=== PATIENT | male | born 1990 ===

== ENCOUNTER 2024-04-01 12:06 | Observation (INO) | payer SELFPAY ==
[2024-04-01] VITALS (18 sets, daily range): BP systolic 102–151; BP diastolic 48–80; PULSE 74–104; RESP 14–19; TEMP 36.6–37.4; O2SAT 75–100; BMI 28.5
[2024-04-01 14:56] LABS: Basophils % 0.5 %; Eosinophils % 0.5 %; Lymphocytes # 1.3 10^3/uL (0.8-4.8); Lymphocytes % 20.8 %; Mean Corpuscular HGB Conc 25.3 g/dL (30-55); Mean Corpuscular Hemoglobin 15.6 pg (27-33); Mean Corpuscular Volume 61.7 fl (82-101); Monocytes # 0.5 10^3/uL (0.2-0.9); Monocytes % 7.6 %; Neutrophils # 4.21 10^3/uL (1.8-7.7); Neutrophils % 69.9 %; Nucleated Red Blood Cells % 0.3 %; Platelet Count 235 10^3/cmm (157-399); Red Blood Count 2.82 10^6/uL (3.85-5.65); Red Cell Distribution Width 19.6 % (12.1-15.1); White Blood Count 6.02 10^3/uL (3.29-11.43)
[2024-04-01 15:01] LABS: Alanine Aminotransferase 14 U/L (0-41); Albumin Level 4.4 g/dL (3.5-5.2); Alkaline Phosphatase 55 U/L (40-130); Anion Gap 14.9 (5-19); Aspartate Amino Transferase 22 U/L (0-40); Blood Urea Nitrogen 9 mg/dL (6-20); Calcium 8.9 mg/dL (8.5-10.5); Carbon Dioxide 25 mmol/L (22-29); Chloride 101 mmol/L (98-107); Creatinine Clr Calc Pharmacy 137.1831; Globulin 2.6 g/dL (1.3-4.6); Glucose 112 mg/dL (65-115); Lipase 38 U/L (13-60); Osmolality Calculated 283 mOsm/kg (285-295); Potassium 3.9 mmol/L (3.5-5.1); Sodium 137 mmol/L (136-145); Total Bilirubin 0.3 mg/dL (0.15-1.2)
[2024-04-01 15:04] LABS: Hematocrit 17.4 % (37-53); Slide Review Slide Review Perform
--- NOTE | 2024-04-01 15:19 | ED_ITS ---
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 He states he is also been having rectal bleeding he states he has had maroon stools it has been going on for a month he states it is actually improved today has been having brown stools but has been having increasing flank and back pain along with a lot of weakness and feeling like he is get a pass out. No history of bleeding in the past he states he is never been to a hospital before no surgeries in the past not on any blood thinners Associated Symptoms: Reports hematochezia; Denies chills, diarrhea, fever(s), nausea and vomiting Related Data Allergies Allergy/AdvReac Type Severity Reaction Status Date / Time No Known Allergies Allergy Verified 04/01/24 12:23 Review of Systems 2 Const: Reports: fatigue; Denies: fever(s) or chills Eyes: Denies: blurry vision or eye discomfort ENMT: Denies: throat pain or dental pain Card: Denies: chest pain Resp: Denies: dyspnea GI: Reports: abdominal pain and hematochezia; Denies: nausea, vomiting or diarrhea Musc: Denies: neck pain or back pain Skin/Breast: Denies: rash Neuro: Denies: headache(s) Physical Exam 2 Const: COMMON NORMALS: patient oriented x3 HENMT: COMMON NORMALS: normocephalic and atraumatic HEAD & SCALP: n ormocephalic and atraumatic Neck/C-Spine: COMMON NORMALS: full ROM and supple Chest: COMMONS NORMALS: normal inspection of the chest and normal palpation of entire chest wall Resp: COMMON NORMALS: normal respiratory effort, No retractions, No use of accessory muscles and clear to auscultation bilaterally AUSCULTATION: clear to auscultation bilaterally Cardio: COMMON NORMALS: regular rate, regular rhythm and No murmurs present (Cardio) RATE: regular rate RHYTHM: regular rhythm GI: COMMON NORMALS: Normal to inspection, nondistended, normoactive bowel sounds present, Soft to palpation, non-tender and no masses PALPATION: Yes Soft to palpation RECTAL EXAM: No heme positive stool OTHER: brown stool on rectal exam Extremity: COMMON NORMALS: normal to inspection and full ROM Neuro: COMMON NORMALS: patient oriented x3, moves all extremities and no focal motor deficits Psych: COMMON NORMALS: mental status grossly normal, Normal thought process present and cooperative THOUGHT PROCESS: Normal thought process present Skin: COMMON NORMALS: no rashes or lesions noted and no wounds GENERAL SKIN EXAM: no rashes or lesions noted Course 2 Vital Signs: Vital signs: Vital Signs Temperature 99.1 F 04/01/24 12:15 Pulse Rate 90 04/01/24 15:19 Respiratory Rate 19 H 04/01/24 15:19 Blood Pressure 125/80 04/01/24 15:19 Pulse Oximetry 100 04/01/24 15:19 Oxygen Delivery Me thod Room Air 04/01/24 15:19 MDM - Abdominal Pain Medical Decision Making Patient presents here with GI bleed likely causes anemia he has no active bleeding at this time we will transfuse in the ER did speak to surgery along with hospitalist and will admit. Medical Records I reviewed the patient's medical records. Lab Data I reviewed the patient's lab results. 04/01/24 15:35 04/01/24 14:10 Labs/Radiology: Radiology Impressions Abdomen/Pelvis CT 04/01/24 15:19 IMPRESSION: 1. Hepatosplenomegaly. 2. Question mild proctocolitis versus artifact from under distension/mucosal crowding. 3. No definitive evidence of rectal bleeding, with the caveat that this study is limited for evaluation of GI bleed. Consider correlation with a dedicated abdomen and pelvic CT without and with contrast (GI bleeding protocol), or nuclear medicine GI bleeding scan. Laboratory Results WBC 6.02 10^3/uL (3.29-11.43) 04/01/24 14:10 RBC 2.82 10^6/uL (3.85-5.65) L 04/01/24 14:10 Hgb 4.10 g/dL (11.27-16.99) L* 04/01/24 15:35 Hct 16.4 % (37-53) L* 04/01/24 15:35 MCV 61.7 fl (82-101) L 04/01/24 14:10 MCH 15.6 pg (27-33) L 04/01/24 14:10 MCHC 25.3 g/dL (30-55) L 04/01/24 14:10 RDW 19.6 % (12.1-15.1) H 04/01/24 14:10 Plt Count 235 10^3/cmm (157-399) 04/01/24 14:10 MPV Not Reportable 04/01/24 14:10 Neut % (Auto) 69.9 % 04/01/24 14:10 Lymph % (Auto) 20.8 % 04/01/24 14:10 [place] % (Auto) 7.6 % 04/01/24 14:10 Eos % (Auto) 0.5 % 04/01/24 14:10 Baso % (Auto) 0.5 % 04/01/24 14:10 Neut # (Auto) 4.21 10^3/uL (1.8-7.7) 04/01/24 14:10 Lymph # (Auto) 1.3 10^3/uL (0.8-4.8) 04/01/24 14:10 [place] # (Auto) 0.5 10^3/uL (0.2-0.9) 04/01/24 14:10 Eos # (Auto) 0.0 10^3/uL (0.0-0.8) 04/01/24 14:10 Baso # (Auto) 0.0 10^3/uL (0.0-0.1) 04/01/24 14:10 Nucleated RBC % (auto) 0.3 % 04/01/24 14:10 Nucleated RBCs # 0.0 /100WBC 04/01/24 14:10 Sodium 137 mmol/L (136-145) 04/01/24 14:10 Potassium 3.9 mmol/L (3.5-5.1) 04/01/24 14:10 Chloride 101 mmol/L (98-107) 04/01/24 14:10 Carbon Dioxide 25 mmol/L (22-29) 04/01/24 14:10 Anion Gap 14.9 (5-19) 04/01/24 14:10 BUN 9 mg/dL (6-20) 04/01/24 14:10 Creatinine 0.9 mg/dL (0.7-1.2) 04/01/24 14:10 GFR Calculation 96.0 mL/min (90-130) 04/01/24 14:10 Glucose 112 mg/dL (65-115) 04/01/24 14:10 Calculated Osmolality 283 mOsm/kg (285-295) L 04/01/24 14:10 Calcium 8.9 mg/dL (8.5-10.5) 04/01/24 14:10 Total Bilirubin 0.3 mg/dL (0.15-1.2) 04/01/24 14:10 AST 22 U/L (0-40) 04/01/24 14:10 ALT 14 U/L (0-41) 04/01/24 14:10 Alkaline Phosphatase 55 U/L (40-130) 04/01/24 14:10 Total Protein 7.0 g/dL (6.6-8.7) 04/01/24 14:10 Albumin 4.4 g/dL (3.5-5.2) 04/01/24 14:10 Globulin 2.6 g/dL (1.3-4.6) 04/01/24 14:10 Lipase 38 U/L (13-60) 04/01/24 14:10 Blood Type B Positive 04/01/24 15:35 Rho(D) Type Rh positive 04/01/24 15:35 Antibody Screen Negative 04/01/24 15:35 Crossmatch See Detail 04/01/24 15:35 All radiology interpretation(s) finalized by discharge Critical Care Time 2 Critical Care Time: Critical Care Time: Yes Total Critical Care Time: 40 Attestation: The high probability of a clinically significant, sudden or life threatening deterioration of the patient's gi system(s) required my full and direct attention, intervention and personal management. The critical care time is as shown. This time is in addition to time spent performing any reported procedures but includes the following: [x] Data and vital sign review and interpretation [x] Patient assessment, examination and intervention [x] Documentation [x] Medication orders and management Discharge Plan Discharge Patient Disposition: Admitted As Inpatient Clinical Impression: Anemia, GI bleed Condition: Stable Coding Level of Care Code ED Service Specialist for Gina De La O
--- NOTE | 2024-04-01 15:19 | CTR_ITS ---
PROCEDURE INFORMATION: Exam: CT Abdomen And Pelvis With Contrast Exam date and time: 04/01/2024 3:44 PM Age: 33 years old Clinical indication: Abdominal pain; Additional info: Rectal bleeding TECHNIQUE: Imaging protocol: Computed tomography of the abdomen and pelvis with contrast. Radiation optimization: All CT scans at this facility use at least one of these dose optimization techniques: automated exposure control; mA and/or kV adjustment per patient size (includes targeted exams where dose is matched to clinical indication); or iterative reconstruction. Contrast material: [id number]; Contrast volume: 100 ml; Contrast route: INTRAVENOUS (IV); COMPARISON: No relevant prior studies available. RADIATION DOSE METRICS: Total DLP (mGy-cm): 797 FINDINGS: Lungs: Subpleural atelectasis of the dependent portions of the lungs. Lung bases are clear. Liver: Liver is enlarged measuring 20 cm. No liver lesions. Gallbladder and biliary ducts: Gallbladder is normal. There is no evidence of biliary ductal dilation. Pancreas: The pancreas is normal. Spleen: Spleen is enlarged measuring 13 cm in length. Adrenal glands: Adrenal glands are normal. Kidneys and ureters: The kidneys are normal. No hydroureter. Stomach and bowel: Rectum and sigmoid are under distended. However, I do question mild wall thickening and mucosal enhancement. Mild constipation. Small bowel is normal. The stomach is normal. The duodenum is unremarkable. There is no evidence of intestinal obstruction. Appendix: A normal appendix is identified. Intraperitoneal space: There is no evidence of free intraperitoneal or pelvic fluid. No intraperitoneal fluid collections. There is no free intraperitoneal air. Vasculature: The vasculature is normal. Portal venous system is patent. Lymph nodes: There is no evidence of lymphadenopathy. Urinary bladder: Bladder is decompressed and difficult to evaluate. Reproductive: Reproductive organs are unremarkable as visualized. Bones/joints: No acute skeletal abnormality or aggressive osseous lesion. Soft tissues: Fat containing umbilical hernia. No acute body wall soft tissue findings. CT/CT abdomen pelvis w con* [id number] IMPRESSION: 1. Hepatosplenomegaly. 2. Question mild proctocolitis versus artifact from under distension/mucosal crowding. 3. No definitive evidence of rectal bleeding, with the caveat that this study is limited for evaluation of GI bleed. Consider correlation with a dedicated abdomen and pelvic CT without and with contrast (GI bleeding protocol), or nuclear medicine GI bleeding scan.
[2024-04-01] MEDS: iohexol 350 mg/mL 500 mL Btl (per mL) IV (15:57)
[2024-04-01 16:44] LABS: Hematocrit 16.4 % (37-53)
--- NOTE | 2024-04-01 17:16 | P.HP_ITS ---
Providers/Chief Complaint 2 Chief Complaint: abd pain History of Present Illness Kahlil Cardenas is a 33 year old male German-speaking gentleman, presented with chief complaint of generalized weakness and fatigue and dizziness. Patient is stating that he has been noticing blood in stool for last 1 month and lately became extremely fatigued lethargic and dizzy on exertion. Hemoglobin is 4.1, severe microcytic anemia, 2 units requested he is hemodynamically stable. Patient does not take any aspirin or Plavix, no previous colonoscopy history. CT abdomen pelvis consistent with proctocolitis, general surgery consulted for colonoscopy patient will get mag citrate, in total he will get 4 units of PRBC along iron Review of Systems 2 Const: Denies: fever(s) Eyes: Denies: change in vision ENMT: Denies: throat pain Card: Denies: chest pain Resp: Denies: dyspnea GI: Reports: change in stool character and hematochezia Medications/Allergies Allergies Allergy/AdvReac Type Severity Reaction Status Date / Time No Known Allergies Allergy Verified 04/01/24 12:23 Vitals/I&O/Wt Last Vital Signs Temp 99.1 F 04/01/24 12:15 Pulse 90 04/01/24 15:19 Resp 19 H 04/01/24 15:19 BP 125/80 04/01/24 15:19 Pulse Ox 100 04/01/24 15:19 O2 Del Method Room Air 04/01/24 15:19 Weight last 48 hrs Weight 95.254 kg Physical Exam 2 Narrative: Young German speaking male Awake and alert Pale complexion Hemodynamically stable Currently room air Nonfocal neuroexam GCS 15 Awake and alert pleasant and cooperative nonfocal neuroexam Data 04/01/24 15:35 04/01/24 14:10 A&P Assessment and plan (1) Hematochezia: (2) GI bleed: (3) Anemia: (4) Microcytic anemia: Plan Severe microcytic anemia Hemodynamically stable Seems to be chronic in nature?why his blood pressure stable Low MCV thalassemia minor? Will give him 4 unit total PRBC I will also give him 1 unit of iron Requested iron studies Hemoglobin is 4.1 no abnormality of liver enzymes, patient does not take any blood thinners Proctocolitis concern, general surgery consult, he will get mag citrate in for liquid diet for now n.p.o. after midnight Dr. Jerez consulted Admit to [facility] Monitor closely Full code DVT prophylaxis contraindicated Interpretation was used to get more information Attestations 2 Medical Necessity Statement*: Anticipating discharge within 48 hours Diagnoses Hematochezia K92.1 GI bleed K92.2 Anemia D64.9 Microcytic anemia D50.9
[2024-04-01 17:47] LABS: Platelet Count 235 10^3/cmm (157-399)
[2024-04-01 19:40] LABS: Iron 12 ug/dL (59-158); Percent Saturation 2.8 % (20-50); Total Iron Binding Capacity 414 mcg/dl; Unsaturated Iron Binding 402 ug/dL (112-347)
[2024-04-01 19:55] LABS: Fibrinogen 313 mg/dL (174-498)
[2024-04-01] MEDS: magnesium citrate Btl 296 mL PO ×3 (20:56→23:22)
[2024-04-01] MEDS: pantoprazole 40 mg SDV IVP (21:13)
[2024-04-01] MEDS: piperacillin-tazobactam 3.375 GM in sodium chloride 0.9% (plus) 50 ML IV (21:14)
[2024-04-01] MEDS: FUROsemide 10 mg/mL SDV 2mL 20 MG IVP (22:59)
[2024-04-01] MEDS: sodium chloride 0.9% 100 mL Bag 50 ML IV (23:45)
[2024-04-02] VITALS (21 sets, daily range): BP systolic 77–120; BP diastolic 54–75; PULSE 59–95; RESP 14–18; TEMP 36.6–37.3; O2SAT 96–100
[2024-04-02] MEDS: morphine IR 15 mg Tablet PO (01:09)
[2024-04-02] MEDS: acetaminophen 500 mg Tablet PO (01:09)
[2024-04-02] MEDS: ondansetron 2 mg/ML SDV 2 mL 4 MG IVP (02:30)
[2024-04-02] MEDS: piperacillin-tazobactam 3.375 GM in sodium chloride 0.9% (plus) 50 ML IV ×2 (04:45→11:29)
[2024-04-02 07:28] LABS: Basophils % 0.4 %; Eosinophils % 0.5 %; Hematocrit 25.9 % (37-53); Lymphocytes # 1.4 10^3/uL (0.8-4.8); Lymphocytes % 16.3 %; Mean Corpuscular HGB Conc 30.5 g/dL (30-55); Mean Corpuscular Hemoglobin 20.8 pg (27-33); Mean Corpuscular Volume 68.2 fl (82-101); Monocytes # 0.5 10^3/uL (0.2-0.9); Monocytes % 6.1 %; Neutrophils # 6.49 10^3/uL (1.8-7.7); Nucleated Red Blood Cells # 0.1 /100WBC; Nucleated Red Blood Cells % 0.7 %; Platelet Count 232 10^3/cmm (157-399); Red Cell Distribution Width 25.2 % (12.1-15.1); White Blood Count 8.53 10^3/uL (3.29-11.43)
--- NOTE | 2024-04-02 07:32 | PC.NURSE ---
BLOOD TRANSFUSION pre administration of third unit had oral temp of 98.1, at 15 minute foster patient temp was 99.2 oral and patient was cold but skin was hot to touch. poem writer stopped blood, hung saline per protocol and called dr nguyen. after informing and answering 's questions order was given to resume blood. poem writer resumed blood as ordered, and rechecked temp 15 minutes later and patients temperature was 98.7 orally. patient tolerated the rest of the unit and one more well without incident.
[2024-04-02 07:46] LABS: Anion Gap 15.1 (5-19); Blood Urea Nitrogen 8 mg/dL (6-20); Calcium 8.6 mg/dL (8.5-10.5); Carbon Dioxide 25 mmol/L (22-29); Chloride 102 mmol/L (98-107); Creatinine Clr Calc Pharmacy 128.5585; Glucose 110 mg/dL (65-115); Magnesium 2.3 mg/dL (1.7-2.3); Osmolality Calculated 285 mOsm/kg (285-295); Potassium 4.1 mmol/L (3.5-5.1); Sodium 138 mmol/L (136-145)
[2024-04-02] MEDS: pantoprazole 40 mg SDV IVP (08:03)
--- NOTE | 2024-04-02 09:51 | P.MISC_ITS ---
Miscellaneous Note Purpose of Documentation: 33-year-old [place]an-speaking gentleman feliciano spencer significant past medical history without past medical history of cancer, bleeding disorder, presented with chief complaint of feeling fatigued lethargic and presyncope. In the ER he was diagnosed with severe microcytic anemia with hemoglobin around 4, he was given 4 units PRBC with Lasix in between. He has significantly low iron as well with extremely low MCV, thalassemia minor?. Dr. Jerez was consulted because patient was experiencing hematochezia for last 3 to 4 weeks. He was given mag citrate as bowel prep. His iron is only 12, he will get iron supplementation along vitamin C and bowel regimen. Give him couple dose of Zosyn for possible proctitis evident on CT scan. He remained hemodynamic stable. Blood pressure remained stable despite his low hemoglobin. He is not on any anticoagulating agent. His coagulation profile is normal.
--- NOTE | 2024-04-02 13:37 | P.CONIM_ITS ---
Providers/Reason For Consult 2 Consulting Physician/Specialty*: Dr. Marques Jerez, DO/General Surgery Reason for Consult*: GI bleed, acute anemia Attending Physician: Richie Sandoval MD History of Present Illness History of Present Illness Kahlil Cardenas is a 33 year old male hospital due to right-sided abdominal pain and per rectum. Examined the patient and spoke with him through an survey field technician provided by the hospital. He reports that he has had a 1 month history of bright red blood per rectum along with right-sided abdominal pain. The pain does not radiate. Nothing seems to make the pain better or worse. He also reports terrible heartburn. Denies any melena. Colonoscopy before and denies any family history of colon cancer. In the ER he was found to have a hemoglobin of 4 Review of Systems 2 General: Reports: 10 or more systems reviewed and unremarkable except in HPI and below Medications/Allergies Home Medications Medication Instructions Recorded Confirmed Last Taken Type ascorbic acid (vitamin C) 100 mg 100 mg PO DAILY #60 tabs 04/02/24 Unknown Rx tablet (Vitamin C) polysaccharide iron complex 150 mg 150 mg PO DAILY #90 caps 04/02/24 Unknown Rx iron capsule (Ferrex) sennosides 8.6 mg-docusate sodium 1 tab-cap PO DAILY #30 tabs 04/02/24 Unknown Rx 50 mg tablet (Senna-S) Allergies Allergy/AdvReac Type Severity Reaction Status Date / Time No Known Allergies Allergy Verified 04/01/24 12:23 Current Medications Generic Name Dose Route Start Last Admin Trade Name Freq PRN Reason Stop Dose Admin Acetaminophen 500 mg 04/01/24 18:16 04/02/24 01:09 Acetaminophen 500 Mg Tablet PO 500 mg Q4H PRN Administration fever Piperacillin Sod/Tazobactam 50 mls @ 12.5 mls/hr 04/01/24 20:00 04/02/24 11:29 Sod 3.375 gm/ Sodium Chloride IV 12.5 mls/hr Q8H ORIANA Administration Morphine Sulfate 15 mg 04/01/24 18:16 04/02/24 01:09 Morphine Ir 15 Mg Tablet PO 15 mg Q6H PRN Administration MODERATE PAIN Ondansetron HCl 4 mg 04/01/24 18:16 04/02/24 02:30 Ondansetron 2 Mg/Ml Sdv 2 Ml IVP 4 mg Q6H PRN Administration NAUSEA AND VOMITING Pantoprazole Sodium 40 mg 04/01/24 18:16 04/02/24 08:03 Pantoprazole 40 Mg Sdv IVP 40 mg BID ORIANA Administration Sodium Chloride 50 ml 04/01/24 15:19 04/01/24 23:45 Sodium Chloride 0.9% 100 Ml Bag IV 04/02/24 15:19 50 ml PRN PRN Administration Blood transfusion prime and flush Vitals/I&O/Wt Last Vital Signs Temp 98.7 F 04/02/24 05:05 Pulse 64 04/02/24 12:05 Resp 18 04/02/24 05:05 BP 114/71 04/02/24 12:05 Pulse Ox 99 04/02/24 12:05 O2 Del Method Room Air 04/02/24 12:05 04/01/24 04/02/24 04/02/24 22:59 06:59 14:59 Intake Total 350 / 350 1250 / 1600 50 / 50 Output Total 2750 / 2750 Balance 350 / 350 -1500 / -1150 50 / 50 Weight last 48 hrs Weight 229 lb 4 oz Weight 226 lb 14.4 oz Weight 210 lb Physical Exam 2 Narrative: General : Patient is well developed , no acute distress, oriented x3 Head : Normal cephalic, a-traumatic. Ears : Pinnae and external canal are normal. Hearing is normal. Eyes : PERRLA, Sclera and injection are normal. No conjunctival discharge. Nose : Mucous membranes are without erythema. Throat : buccal mucosa is normal, gums are without significant recession or hypertrophy. Lungs : Equal chest rise bilaterally, no use of accessory muscles, trachea is midline. Cor : Rate and rhythm are normal. Abdomen : Soft, ND, NT, no g/r/m Extremities : No edema, no cyanosis or clubbing, dorsalis pedis pulses are present bilaterally, non-tender to palpation of calves. Upper extremities are normal bilaterally. Back : non-tender to palpation, no CVA tenderness. Neuro : CN II - XII intact, Upper and lower extremities have equal and full strength Data 04/02/24 07:20 04/02/24 07:20 A&P Assessment and plan (1) GI bleed: (2) Anemia: Plan Pantoprazole twice daily Sucralfate twice daily EGD Diagnostic colonoscopy The risks and benefits of the procedure, including bleeding, infection, intestinal perforation requiring surgery, missed lesion were explained to the patient. The patient is understanding of the risks and wishes to proceed. He was consented through an survey field technician provided by the hospital. All questions answered Coding Level of Care Code 27440 Diagnoses GI bleed K92.2 Anemia D64.9
--- NOTE | 2024-04-02 14:02 | P.ANESASSM_ITS ---
Pre-Anesthetic Assessment Height/Weight: Height 6 ft Weight 229 lb 4 oz Temp Pulse Resp BP Pulse Ox O2 Del Method 98.7 F 64 18 114/71 99 Room Air 04/02/24 05:05 04/02/24 12:05 04/02/24 05:05 04/02/24 12:05 04/02/24 12:05 04/02/24 12:05 Operation Date: 04/02/24 14:30 Proposed Procedures p EGD(Not Applicable) - Marques Jerez DO s Colonoscopy(Not Applicable) - Marques Jerez DO Anesthetic Plan ASA status: 3 Anesthesia: General Other: No prior issues with anesthesia Patient admitted 04/01/2024 for abdominal pain and hematochezia. Labs today reviewed, hemoglobin 7.9. Hemoglobin 4.1 at admission Denies any cardiac or pulmonary issues Vitals currently stable METs greater than 4 Plan for MAC anesthetic Medications/Allergies Home Medications Medication Instructions Recorded Confirmed Last Taken Type ascorbic acid (vitamin C) 100 mg 100 mg PO DAILY #60 tabs 04/02/24 Unknown Rx tablet (Vitamin C) polysaccharide iron complex 150 mg 150 mg PO DAILY #90 caps 04/02/24 Unknown Rx iron capsule (Ferrex) sennosides 8.6 mg-docusate sodium 1 tab-cap PO DAILY #30 tabs 04/02/24 Unknown Rx 50 mg tablet (Senna-S) Allergies Allergy/AdvReac Type Severity Reaction Status Date / Time No Known Allergies Allergy Verified 04/01/24 12:23 Current Medications Generic Name Dose Route Start Last Admin Trade Name Freq PRN Reason Stop Dose Admin Acetaminophen 500 mg 04/01/24 18:16 04/02/24 01:09 Acetaminophen 500 Mg Tablet PO 500 mg Q4H PRN Administration fever Piperacillin Sod/Tazobactam 50 mls @ 12.5 mls/hr 04/01/24 20:00 04/02/24 11:29 Sod 3.375 gm/ Sodium Chloride IV 12.5 mls/hr Q8H ORIANA Administration Morphine Sulfate 15 mg 04/01/24 18:16 04/02/24 01:09 Morphine Ir 15 Mg Tablet PO 15 mg Q6H PRN Administration MODERATE PAIN Ondansetron HCl 4 mg 04/01/24 18:16 04/02/24 02:30 Ondansetron 2 Mg/Ml Sdv 2 Ml IVP 4 mg Q6H PRN Administration NAUSEA AND VOMITING Pantoprazole Sodium 40 mg 04/01/24 18:16 04/02/24 08:03 Pantoprazole 40 Mg Sdv IVP 40 mg BID ORIANA Administration Sodium Chloride 50 ml 04/01/24 15:19 04/01/24 23:45 Sodium Chloride 0.9% 100 Ml Bag IV 04/02/24 15:19 50 ml PRN PRN Administration Blood transfusion prime and flush Data Anesthesia 04/02/24 07:20 04/02/24 07:20 Short CBC 04/01/24 04/01/24 04/01/24 Range/Units 14:10 14:10 15:35 WBC 6.02 (3.29-11.43) 10^3/uL Hgb 4.40 L* 4.10 L* (11.27-16.99) g/dL Hct 17.4 L* 16.4 L* (37-53) % MCV 61.7 L (82-101) fl Plt Count 235 235 (157-399) 10^3/cmm Neut % (Auto) 69.9 % Neut # (Auto) 4.21 (1.8-7.7) 10^3/uL 04/02/24 Range/Units 07:20 WBC 8.53 (3.29-11.43) 10^3/uL Hgb 7.90 L D (11.27-16.99) g/dL Hct 25.9 L D (37-53) % MCV 68.2 L D (82-101) fl Plt Count 232 (157-399) 10^3/cmm Neut % (Auto) 76.0 % Neut # (Auto) 6.49 (1.8-7.7) 10^3/uL BMP 04/01/24 04/02/24 14:10 07:20 Sodium 137 138 Potassium 3.9 4.1 Chloride 101 102 Carbon Dioxide 25 25 BUN 9 8 Creatinine 0.9 1.0 Glucose 112 110 Calcium 8.9 8.6 Liver Function 04/01/24 Range/Units 14:10 Total Bilirubin 0.3 (0.15-1.2) mg/dL AST 22 (0-40) U/L ALT 14 (0-41) U/L Alkaline Phosphatase 55 (40-130) U/L Albumin 4.4 (3.5-5.2) g/dL Blood Bank 04/01/24 15:35 Blood Type B Positive Rho(D) Type Rh positive Antibody Screen Negative Coags 04/01/24 04/01/24 14:10 19:35 PT 13.50 INR 1.00 APTT 25.0 Fibrinogen 313 Cancelled Cardiac Studies: 2 No Data to Display
--- NOTE | 2024-04-02 15:31 | PM.DCS ---
Discharge Providers Date of Admission: 04/01/24 17:58 Date of Discharge: April 02, 2024 Attending Provider at Admission: Richie Sandoval MD Attending Provider at Discharge: Richie Sandoval MD Diagnoses at Discharge Discharge Diagnosis (1) GI bleed: Status: Acute (2) Anemia: Status: Acute Reason for Visit Reason for Visit: abd pain Hospital Course Hospital Course 33-year-old Ukrainian-speaking gentleman without significant past medical history without past medical history of cancer, bleeding disorder, presented with chief complaint of feeling fatigued lethargic and presyncope. In the ER he was diagnosed with severe microcytic anemia with hemoglobin around 4, he was given 4 units PRBC with Lasix in between. He has significantly low iron as well with extremely low MCV, thalassemia minor?. Dr. Jerez was consulted because patient was experiencing hematochezia for last 3 to 4 weeks. He was given mag citrate as bowel prep. His iron is only 12, he will get iron supplementation along vitamin C and bowel regimen. Give him couple dose of Zosyn for possible proctitis evident on CT scan. He remained hemodynamic stable. Blood pressure remained stable despite his low hemoglobin. He is not on any anticoagulating agent. His coagulation profile is normal He may benefit from hematology referral for thalassemia workup Physical Exam Narrative: Nonfocal neuroexam Pleasant cough Abdomen soft Discharge Data Studies Completed and Pending Completed Studies During Hospitalization Category Date Time Status CT abdomen pelvis w con* [id number] Stat Cat Scan 04/01/24 15:19 Completed Pending at discharge Category Date Time Status Pathology: Surgical [PTH] Routine Pth 04/02/24 15:20 Ordered Radiology Impressions Abdomen/Pelvis CT 04/01/24 15:19 IMPRESSION: 1. Hepatosplenomegaly. 2. Question mild proctocolitis versus artifact from under distension/mucosal crowding. 3. No definitive evidence of rectal bleeding, with the caveat that this study is limited for evaluation of GI bleed. Consider correlation with a dedicated abdomen and pelvic CT without and with contrast (GI bleeding protocol), or nuclear medicine GI bleeding scan. Laboratory Results WBC 8.53 10^3/uL (3.29-11.43) 04/02/24 07:20 RBC 3.80 10^6/uL (3.85-5.65) L 04/02/24 07:20 Hgb 7.90 g/dL (11.27-16.99) L D 04/02/24 07:20 Hct 25.9 % (37-53) L D 04/02/24 07:20 MCV 68.2 fl (82-101) L D 04/02/24 07:20 MCH 20.8 pg (27-33) L D 04/02/24 07:20 MCHC 30.5 g/dL (30-55) D 04/02/24 07:20 RDW 25.2 % (12.1-15.1) H 04/02/24 07:20 Plt Count 232 10^3/cmm (157-399) 04/02/24 07:20 MPV Not Reportable 04/02/24 07:20 Neut % (Auto) 76.0 % 04/02/24 07:20 Lymph % (Auto) 16.3 % 04/02/24 07:20 [place] % (Auto) 6.1 % 04/02/24 07:20 Eos % (Auto) 0.5 % 04/02/24 07:20 Baso % (Auto) 0.4 % 04/02/24 07:20 Neut # (Auto) 6.49 10^3/uL (1.8-7.7) 04/02/24 07:20 Lymph # (Auto) 1.4 10^3/uL (0.8-4.8) 04/02/24 07:20 [place] # (Auto) 0.5 10^3/uL (0.2-0.9) 04/02/24 07:20 Eos # (Auto) 0.0 10^3/uL (0.0-0.8) 04/02/24 07:20 Baso # (Auto) 0.0 10^3/uL (0.0-0.1) 04/02/24 07:20 Nucleated RBC % (auto) 0.7 % 04/02/24 07:20 Nucleated RBCs # 0.1 /100WBC 04/02/24 07:20 PT 13.50 SECONDS (12.1-14.9) 04/01/24 14:10 INR 1.00 (0.8-1.2) 04/01/24 14:10 APTT 25.0 SECONDS (23.9-36.7) 04/01/24 14:10 Fibrinogen Cancelled 04/01/24 19:35 Sodium 138 mmol/L (136-145) 04/02/24 07:20 Potassium 4.1 mmol/L (3.5-5.1) 04/02/24 07:20 Chloride 102 mmol/L (98-107) 04/02/24 07:20 Carbon Dioxide 25 mmol/L (22-29) 04/02/24 07:20 Anion Gap 15.1 (5-19) 04/02/24 07:20 BUN 8 mg/dL (6-20) 04/02/24 07:20 Creatinine 1.0 mg/dL (0.7-1.2) 04/02/24 07:20 GFR Calculation 85.0 mL/min (90-130) L 04/02/24 07:20 Glucose 110 mg/dL (65-115) 04/02/24 07:20 Calculated Osmolality 285 mOsm/kg (285-295) 04/02/24 07:20 Calcium 8.6 mg/dL (8.5-10.5) 04/02/24 07:20 Magnesium 2.3 mg/dL (1.7-2.3) 04/02/24 07:20 Iron 12 ug/dL (59-158) L 04/01/24 14:10 TIBC 414 mcg/dl 04/01/24 14:10 % Saturation 2.8 % (20-50) L 04/01/24 14:10 Unsat Iron Binding 402 ug/dL (112-347) H 04/01/24 14:10 Total Bilirubin 0.3 mg/dL (0.15-1.2) 04/01/24 14:10 AST 22 U/L (0-40) 04/01/24 14:10 ALT 14 U/L (0-41) 04/01/24 14:10 Alkaline Phosphatase 55 U/L (40-130) 04/01/24 14:10 Total Protein 7.0 g/dL (6.6-8.7) 04/01/24 14:10 Albumin 4.4 g/dL (3.5-5.2) 04/01/24 14:10 Globulin 2.6 g/dL (1.3-4.6) 04/01/24 14:10 Lipase 38 U/L (13-60) 04/01/24 14:10 Blood Type B Positive 04/01/24 15:35 Rho(D) Type Rh positive 04/01/24 15:35 Antibody Screen Negative 04/01/24 15:35 Crossmatch See Detail 04/01/24 15:35 Vitals Last Vital Signs Temp 98.7 F 04/02/24 05:05 Pulse 64 04/02/24 12:05 Resp 18 04/02/24 05:05 BP 114/71 04/02/24 12:05 Pulse Ox 99 04/02/24 12:05 O2 Del Method Room Air 04/02/24 12:05 Discharge Plan Discharge Patient Disposition: Home Condition: Stable Prescriptions: New polysaccharide iron complex [Ferrex 150] 150 mg iron Capsule 150 mg PO DAILY Qty: 90 0RF Vitamin C 100 mg tablet 100 mg PO DAILY Qty: 60 0RF sennosides-docusate sodium [Senna-S] 8.6-50 mg tablet 1 tab-cap PO DAILY Qty: 30 0RF omeprazole 20 mg capsule,delayed release(DR/EC) 20 mg PO DAILY Qty: 120 0RF Discharge Orders: Discharge Order (Routine); Ordered 04/02/24 Ordered By: Richie Sandoval Referrals: Azam Raman MD [Physician] - 3 weeks Antonio Langley MD [Hospitalist] - 1 week Discharge Diet: Regular Discharge Activity: Increase activity as tolerated Patient Instructions: Opioid Safety Discharge Attestations Time Spent in Discharge Care*: greater than 30 min Quality Metrics Clinical Quality Measures [ No reported AMI, CVA or VTE this stay] Coding Level of Care Code Acute Code for Chg Fwd Diagnoses GI bleed K92.2 Anemia D64.9
--- NOTE | 2024-04-02 18:10 | PC.NURSE ---
Discharge Note Patient discharged to home via private vehicle accompanied by family. Discharge instructions reviewed with patient and/or personnel representative. Mobile pharmacy medications and/or prescriptions provided. Belongings/home medications returned.
== END 2024-04-02 18:10 | disposition home or self-care (01) ==
LOC: ER 17:29 → MEDSURG 17:58
PROVIDERS: Surgery; Admitting Provider Internal Medicine; Emergency Provider Emergency Medicine; Visit Provider Internal Medicine
PROC: 0DJ08ZZ Inspection of Upper Intestinal Tract, Via Natural or Artificial Opening Endoscopic (ICD-10-PCS; CPT 43235; principal; 2024-04-02 14:30)
PROC: 0DJD8ZZ Inspection of Lower Intestinal Tract, Via Natural or Artificial Opening Endoscopic (ICD-10-PCS; CPT 45378; 2024-04-02 14:30)
DX: D64.9 Anemia, unspecified (principal); K29.50 Unspecified chronic gastritis without bleeding; K92.1 Melena
CPT/HCPCS: 36415; 36430; 43239; 45378; 74177; 80048; 80053; 83540; 83550; 83690; 83735; 85014; 85018; 85025; 85049; 85384; 85610; 85730; 86850; 86900; 86920; 88305; 88342; 96365; 96375; 99285; G0378; J1940; J2405; J2470; J2543; J2704; J3490; P9016